=== PATIENT | female | born 1975 ===

== ENCOUNTER 2018-01-03 16:45 | Emergency (ER) | payer SELFPAY ==
[2018-01-03 17:09] VITALS: BP 126/87; PULSE 83; RESP 19; TEMP 98.8; O2SAT 99
--- NOTE | 2018-01-03 17:25 | ED PDOC ---
HPI: Dental Pain/Injury Time Seen by Provider: 01/03/18 17:10 Chief Complaint (Nursing): Dental Pain Chief Complaint (Provider): dental pain, facial swelling History Per: Patient Additional Complaint(s): 42 year old female presents to the ED for evaluation of facial swelling and dental pain. She reports she woke up with facial swelling this morning. Patient took Ibuprofen without any relief. Patient is tolerating liquids and solids. Denies fever or chills. PMD: Pipe Jacob Past Medical History Reviewed: Historical Data, Nursing Documentation, Vital Signs Vital Signs: Last Vital Signs Temp 98.8 F 01/03/18 17:08 Pulse 83 01/03/18 17:08 Resp 19 01/03/18 17:08 BP 126/87 01/03/18 17:08 Pulse Ox 99 01/03/18 17:08 - Medical History PMH: Asthma - Surgical History Surgical History: No Surg Hx - Family History Family History: States: No Known Family Hx - Living Arrangements Living Arrangements: With Family - Social History Current smoker - smoking cessation education provided: No Alcohol: None Drugs: Denies - Home Medications Home Medications: Ambulatory Orders Medication Instructions Recorded Montelukast [Singulair] 10 mg PO HS 08/14/14 hydrALAZINE Hydrochloride 12.5 mg PO DAILY 08/14/14 [Apresoline] Clindamycin [Cleocin] 300 mg PO QID #28 cap 01/03/18 Ibuprofen [Motrin Tab] 800 mg PO Q8 PRN #20 tab 01/03/18 traMADol [Ultram] 50 mg PO Q6H PRN #15 tab 01/03/18 - Allergies Allergies/Adverse Reactions: Allergies Allergy/AdvReac Type Severity Reaction Status Date / Time No Known Allergies Allergy Verified 08/14/14 19:35 Review of Systems ROS Statement: Except As Marked, All Systems Reviewed And Found Negative Constitutional: Negative for: Fever, Chills ENT: Positive for: Other (facial swelling, dental pain) Neurological: Negative for: Headache, Dizziness Physical Exam - Reviewed Nursing Documentation Reviewed: Yes Vital Signs Reviewed: Yes - Physical Exam Appears: Positive for: Non-toxic, No Acute Distress Head Exam: Positive for: ATRAUMATIC, NORMAL INSPECTION, NORMOCEPHALIC Skin: Positive for: Normal Color Eye Exam: Positive for: Normal appearance ENT: Positive for: Other (multiple missing teeth and dental caries to right upper mandible with swelling to right maxillary region, airway patent, uvula midline) Cardiovascular/Chest: Positive for: Regular Rate, Rhythm. Negative for: Murmur Respiratory: Positive for: Normal Breath Sounds. Negative for: Decreased Breath Sounds, Wheezing, Respiratory Distress Extremity: Positive for: Normal ROM Neurologic/Psych: Positive for: Alert, Oriented (x3) - Laboratory Results Urine POC: Negative (test refused, patient states she is certain she is not ) - ECG O2 Sat by Pulse Oximetry: 99 (RA) Pulse Ox Interpretation: Normal Medical Decision Making Medical Decision Making: Time: 1722 Initial Impression: 42 year old female with dental pain and abscess Initial Plan: --Patient given Motrin 600mg and Ultram 50mg in ED Patient given prescriptions for clindamycin, Motrin and tramadol. She was advised to follow-up with soonest possible with dentist. Scribe Attestation: Documented by Hilda Skelton, acting as a scribe for Kelley Girard PA-C Provider Scribe Attestation: All medical record entries made by the Scribe were at my direction and personally dictated by me. I have reviewed the chart and agree that the record accurately reflects my personal performance of the history, physical exam, medical decision making, and the department course for this patient. I have also personally directed, reviewed, and agree with the discharge instructions and disposition. Disposition - Clinical Impression Clinical Impression: Dental abscess - Patient ED Disposition Is Patient to be Admitted: No Counseled Patient/Family Regarding: Diagnosis, Need For Followup, Rx Given - Disposition [facility] Disposition: Routine/Home Disposition Time: 17:24 Condition: STABLE Additional Instructions: Take prescription meds as directed. Follow up as soon as possible with dentist. Prescriptions: Clindamycin [Cleocin] 300 mg PO QID #28 cap Ibuprofen [Motrin Tab] 800 mg PO Q8 PRN #20 tab PRN Reason: Pain, Moderate (4-7) traMADol [Ultram] 50 mg PO Q6H PRN #15 tab PRN Reason: Pain, Moderate (4-7) Instructions: Tooth Abscess (DC), Dental Pain (DC) Forms: [facility] ([place]ian)
== END 2018-01-03 18:02 | disposition home or self-care (01) ==
LOC: H.ER 16:45
DX: K04.7 Periapical abscess without sinus (principal); J45.909 Unspecified asthma, uncomplicated